=== PATIENT | female | born 1930 | race Caucasian/White ===

== ENCOUNTER → 2016-05-14 | Outpatient (CLI) | payer OTHER ==
[~2016-05-14] VITALS: Ht 162.6 cm; Wt 70.8 kg
[~2016-05-14] MED LIST: ADULT LOW DOSE81 MG PO; AMBIEN 10 MG TA10 MG PO; ASPIRIN PO; ATENOLOL 50 MG50 M1 PO; CALCIUM 600 WI1 EAC5 PO; CELEBREX 200 M200 MG PO; CELEXA 20 MG TA20 MG PO; CYMBALTA20 MG PO; ENALAPRIL MALEA20 MG PO; FISH OIL 1,001000 M1 PO; GLUCOSAMINE &1 EACH PO; LEVOTHYROXINE0.2 M1 PO; MULTIVITAMINS PO; NORCO 5-325 TA1 EACH PO; PRESERVISION A1 EAC1 PO; PRILOSEC 20 MG20 MG PO; SIMVASTATIN20 MG PO; TIROSINT75 MCG PO; TRAMADOL 50 MG50 MG PO; VERAPAMIL E.R240 M1 PO; WELLBUTRIN SR150 MG PO; XANAX 0.5 MG0.5 M1 PO; ZANTAC 150MG T150 M1 PO
--- NOTE | ~2016-05-14 | HPC ---
[facility] [place] [address] PAIN MANAGEMENT CONSULTATION Name: LEXI ODONNELL Zion Room #: REG [facility] Nichole.#: [id number] Admission: 05/14/16 Attend Phys: Marcial Kennedy DO Discharge: Date of : 31 Report #: [id number] THIS REPORT FOR: //name// CC: Lopez Kennedy The patient is a delightful 85-year-old female. She has been treated for lumbosacral spondylosis, SI joint dysfunction for quite some time. She has done well with occasional bilateral SI joint injections, last injection being on 11/25/2015. She gets greater than 60% relief for up to 3 months. She prior had had SI joint injections in May of 2015, November of 2013, and July of 2012. She returns to pain clinic today noting again last injection gave her near 90% relief actually for 3 months, though pain has began to recur in the low back. She denies any specific antecedent trauma and/or overuse. Notes the pain is in the low back, buttock, and SI areas, does not radiate below the mid thigh. Pain is exacerbated with leaning forward, bending and walking. Rates her pain at 8 on a 0-10 visual analog scale. PHYSICAL EXAMINATION: Shows an 85-year-old female, BMI is 26.8 kilograms per meter squared. Vital signs are generally stable. Rises from the chair using armrest. Gait is generally tandem. Diffuse tenderness over the SI joints. Positive Alyssa test bilaterally. ASSESSMENT: Symptomatic sacroiliac joint dysfunction, lumbosacral spondylosis. RECOMMENDATION: 1. Continue tramadol [id number], and suggest she use adjuvant acetaminophen 500 mg with this for pain. Typically after her SI joint injections, she does not require any analgesics for 2-3 months. I suggest when she goes back to tramadol, she used Tylenol concurrently, she does not require a prescription for the same. 2. Bilateral SI joint injections under fluoroscopy. 3. Continue current strengthening exercises, activity as able. 4. Follow up as needed. 5. Last visit, I had given the patient a prescription for physical therapy for core strengthening. She continues to do these activities and exercises. PROCEDURE: Bilateral SI joint injection under fluoroscopy. DESCRIPTION OF PROCEDURE: After written and informed consent was obtained including risk of infection, nerve trauma, increased pain and weakness, the patient wishes to proceed. The patient was taken to the fluoroscopy suite, placed in the prone position. The sacroiliac joint was visualized using the C-arm, turned in an oblique fashion to align the joint. The skin overlying the area was cleansed with ChloraPrep. Skin wheal with Xylocaine was raised. A 22 gauge spinal needle was inserted into the inferior aspect of the joint. A [address] [address] PAIN MANAGEMENT CONSULTATION Name: LEXI ODONNELL Room #: REG [facility] Jessi#: [id number] Admission: 05/14/16 Attend Phys: Marcial Kennedy DO Discharge: Date of : 31 Report #: [id number] volume extension tubing was then attached to the needle after the stylet was removed. Negative aspiration was accomplished. A 1 mL of Omnipaque was injected which showed spread within the SI joint. 40 mg triamcinolone plus 2 mL of 0.5% preservative-free bupivacaine was injected into the joint. Needle was removed. Attention was then turned to the contralateral joint which was treated in an identical fashion. After both needles were removed the prep was washed off. Two Band-Aids were applied over the puncture sites. The patient was allowed to ambulate to the recovery room, monitored for an appropriate period of time, discharged in good and stable condition. <ELECTRONICALLY SIGNED> By: Marcial Kennedy DO 05/15/16 0704 1227 1652 Marcial Kennedy DO /nt
[2016-05-14 09:57] VITALS: BP 156/82
== END ==
LOC: PAIN 06:43
DX: M47.817 Spondylosis without myelopathy or radiculopathy, lumbosacral region (principal); I10 Essential (primary) hypertension

== ENCOUNTER 2016-08-21 19:50 | Observation (INO) | payer OTHER ==
[~2016-08-21] VITALS: Ht 165.1 cm; Wt 67.6 kg
--- NOTE | ~2016-08-21 | EKG ---
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 : 1930 Requested By: Eamon Roland Order Number: [id number] MD: Mario Bunn Measurements Intervals [place] Rate: 62 P: 24 VA: 170 QRS: -31 QRSD: 111 T: 35 QT: 475 QTc: 483 Interpretive Statements Sinus rhythm Left ventricular hypertrophy Anterior Q waves, possibly due to LVH Nonspecific T abnormalities, lateral leads Compared to ECG 08/30/2011 10:44:46 Left ventricular hypertrophy now present Electronically Signed On 08-22-2016 2:12:12 CDT by Mario Bunn [email or web address] <ELECTRONICALLY SIGNED> By: Mario Bunn MD 08/22/16 0212 16 16 Mario Bunn MD /[facility]
[2016-08-21 19:51] VITALS: BP 209/91
[2016-08-21 20:30] LABS: ABSOLUTE NEUTROPHILS 6.7 thou/uL (1.4-8.2); BASOPHILS 0.4 % (0.0-2.0); EOSINOPHILS 0.3 % (0.0-3.0); HEMATOCRIT 42.5 % (37.0-47.0); LYMPHOCYTES 11.2 % (24.0-44.0); MCH 36.5 pg (26.0-34.0); MCHC 35.3 g/dL (28.0-37.0); MCV 103.5 fL (80.0-100.0); MONOCYTES 3.9 % (1.0-8.0); PLATELET COUNT 243 thou/uL (150-400); POLYS 84.2 % (36.0-66.0); RDW 12.3 % (10.5-14.5)
[2016-08-21 20:32] LABS: MANUAL DIFF NO
[2016-08-21 20:40] LABS: CALCIUM 9.1 mg/dL (8.5-10.1); CREATININE 0.7 mg/dL (0.6-1.0); POTASSIUM 3.6 mmol/L (3.5-5.1)
[2016-08-21 20:44] LABS: ALBUMIN 3.5 g/dL (3.4-5.0); TOTAL BILIRUBIN 1.1 mg/dL (<0.1-1.0); TOTAL PROTEIN 7.3 g/dL (6.4-8.2)
[2016-08-21 20:53] LABS: URINE BILIRUBIN NEGATIVE (Negative); URINE BLOOD 1+ (Negative); URINE COLOR YELLOW; URINE GLUCOSE-RANDOM* NEGATIVE (Negative); URINE KETONES 2+ (Negative); URINE LEUKOCYTES-REFLEX NEGATIVE (Negative); URINE PROTEIN (DIPSTICK) 2+ (Negative); URINE UROBILINOGEN 0.2 E.U./dl (0.2-1.0)
[2016-08-21 21:00] LABS: CASTS None Seen /LPF (None Seen); SQUAMOUS 0-3 Few /LPF (0-3); URINE RBC 3-10 Few /HPF (0-2); URINE WBC-REFLEX 0-5 Rare /HPF (0-5)
[2016-08-21 21:01] LABS: CRYSTALS None Seen /LPF (None Seen)
[2016-08-21 22:01] VITALS: BP 197/79
[2016-08-21 22:25] VITALS: BP 209/99
[2016-08-21 23:30] VITALS: BP 189/87
[2016-08-22 04:15] VITALS: BP 158/78
[2016-08-22 04:18] LABS: HEMATOCRIT 41.7 % (37.0-47.0); HEMOGLOBIN 14.8 gm/dL (12.0-15.0); MCHC 35.4 g/dL (28.0-37.0); MCV 101.5 fL (80.0-100.0); RBC 4.1 mil/uL (4.20-5.00); RDW 12.2 % (10.5-14.5); WBC 7.3 thou/uL (4.0-11.0)
[2016-08-22 04:30] LABS: CALCIUM 8.9 mg/dL (8.5-10.1); CREATININE 0.7 mg/dL (0.6-1.0); POTASSIUM 3.2 mmol/L (3.5-5.1)
[2016-08-22 09:02] VITALS: BP 170/66
[2016-08-22 09:50] LABS: MAGNESIUM 1.8 mg/dL (1.8-2.4)
[2016-08-22 16:55] VITALS: BP 188/80
[2016-08-22 20:00] VITALS: BP 166/61
[2016-08-23 01:06] LABS: GLYCOHEMOGLOBIN (HGB A1C) 4.7 % (4.8-5.6)
[2016-08-23 04:00] VITALS: BP 147/59
[2016-08-23 05:48] LABS: ABSOLUTE NEUTROPHILS 3.9 thou/uL (1.4-8.2); BASOPHILS 0.3 % (0.0-2.0); EOSINOPHILS 1.5 % (0.0-3.0); HEMOGLOBIN 13.3 gm/dL (12.0-15.0); LYMPHOCYTES 27.3 % (24.0-44.0); MCH 36.4 pg (26.0-34.0); MCHC 35.1 g/dL (28.0-37.0); MCV 103.9 fL (80.0-100.0); MONOCYTES 8.5 % (1.0-8.0); PLATELET COUNT 208 thou/uL (150-400); POLYS 62.4 % (36.0-66.0); RBC 3.66 mil/uL (4.20-5.00); RDW 12.3 % (10.5-14.5); WBC 6.3 thou/uL (4.0-11.0)
[2016-08-23 05:55] LABS: MANUAL DIFF NO
[2016-08-23 06:05] LABS: CALCIUM 8.6 mg/dL (8.5-10.1); CREATININE 0.8 mg/dL (0.6-1.0); POTASSIUM 4.2 mmol/L (3.5-5.1)
[2016-08-23 09:20] VITALS: BP 175/65
[2016-08-23] MEDS ORDERED: PROTONIX40 M2 PO (10:12)
[2016-08-23] MEDS ORDERED: ONDANSETRON HCL4 M2 PO (10:12)
[2016-08-23 14:03] VITALS: BP 175/74
== END 2016-08-23 14:24 | disposition home or self-care (01) ==
LOC: ER 19:50 → EROBS 21:34 → 3N 23:14
PROVIDERS: Emergency Medicine; Internal Medicine; Nurse Practitioner Family
DX: R10.13 Epigastric pain (principal); E87.1 Hypo-osmolality and hyponatremia; K21.9 Gastro-esophageal reflux disease without esophagitis; I10 Essential (primary) hypertension; E87.6 Hypokalemia; R07.9 Chest pain, unspecified; R53.1 Weakness; F41.9 Anxiety disorder, unspecified
CPT/HCPCS: 23020; 23021; 23024; 23029; 23031

== ENCOUNTER → 2016-12-31 | Outpatient (CLI) | payer OTHER ==
[~2016-12-31] VITALS: Ht 162.6 cm; Wt 70.1 kg
[~2016-12-31] MED LIST changes: +ONDANSETRON HCL4 M2 PO; +PROTONIX40 M1 PO; +PROTONIX40 M2 PO
--- NOTE | ~2016-12-31 | HPC ---
[facility] [address] PAIN MANAGEMENT CONSULTATION Name: LEXI ODONNELL Zion Room #: REG [facility] Jessi#: [id number] Admission: 12/31/16 Attend Phys: Marcial Kennedy DO Discharge: Date of : 31 Report #: [id number] THIS REPORT FOR: //name// CC: Lopez Kennedy DATE OF SERVICE: 12/31/2016 The patient is an 86-year-old female, long known to the pain clinic, typically treated for axial back pain, lumbosacral spondylosis, SI joint dysfunction. On 12/14/2016, I saw the patient in followup. She has had prior good relief with bilateral SI joint injections in 2012, 2013 and again in 2015. We sought authorization for bilateral SI injections today. Today, we did discuss at length spinal cord stimulator as possible therapeutic option. The patient's sister has had a spinal cord stimulator with excellent ongoing improvement. The patient notes that while the SI joint injections afford good relief, it is only transient, 2-3 months, and then pain recurs. We are concerned about exposing her to ongoing steroids with concern for osteoporosis in this 86-year-old female. ASSESSMENT #1: Symptomatic lumbosacral spondylosis, axial back pain, sacroiliac mediated pain. RECOMMENDATION: 1. I did give the patient DVD and printed information regarding spinal cord stimulator. We discussed therapeutic option at length for neuropathic pain component and lumbar radicular component. We will see her back in 2 weeks to evaluate efficacy of today's intervention and discuss moving forward with spinal cord stimulator if the patient so desirous. ASSESSMENT #2: Acute exacerbation of sacroiliac mediated pain. PROCEDURE: Bilateral sacroiliac joint injections under fluoroscopy. DESCRIPTION OF PROCEDURE: After written and informed consent was obtained including risk of infection, nerve trauma, increased pain and weakness, the patient wishes to proceed. The patient was taken to the fluoroscopy suite, placed in the prone position. The sacroiliac joint was visualized using the C-arm, turned in an oblique fashion to align the joint. The skin overlying the area was cleansed with ChloraPrep. Skin wheal with Xylocaine was raised. A 22 gauge spinal needle was inserted into the inferior aspect of the joint. A low volume extension tubing was then attached to the needle after the stylet was removed. Negative aspiration was accomplished. A 1 mL of Omnipaque was injected which showed spread within the SI joint. 40 mg triamcinolone plus [address] [address] PAIN MANAGEMENT CONSULTATION Name: LEXI ODONNELL Room #: REG [facility].#: [id number] Admission: 12/31/16 Attend Phys: Marcial Kennedy DO Discharge: Date of : 31 Report #: [id number] 0.5% preservative-free bupivacaine was injected into the joint. Needle was removed. Attention was then turned to the contralateral joint which was treated in an identical fashion. After both needles were removed the prep was washed off. Two Band-Aids were applied over the puncture sites. The patient was allowed to ambulate to the recovery room, monitored for an appropriate period of time, discharged in good and stable condition. Fluoroscopy time was 120 seconds. <ELECTRONICALLY SIGNED> By: Marcial Kennedy DO 01/01/17 0731 0856 1841 Marcial Kennedy DO /nt
[2016-12-31 08:28] VITALS: BP 158/83
== END | disposition home or self-care (01) ==
LOC: PAIN 06:20
DX: M53.3 Sacrococcygeal disorders, not elsewhere classified (principal); M47.817 Spondylosis without myelopathy or radiculopathy, lumbosacral region; M54.16 Radiculopathy, lumbar region

== ENCOUNTER 2017-02-24 17:45 | Inpatient (IN) | payer OTHER ==
[~2017-02-24] VITALS: Ht 162.6 cm; Wt 70.8 kg
--- NOTE | ~2017-02-24 | EKG ---
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: ANGELY : 1930 Requested By: Cesar Erazo Order Number: [id number] MD: Colin Zhou Measurements Intervals [place] Rate: 47 P: ME: QRS: -22 QRSD: 90 T: -36 QT: 474 QTc: 419 Interpretive Statements Atrial fibrillation with a slow ventricular response Septal infarct, old Nonspecific T wave abnormality Compared to ECG 08/21/2016 20:17:18 No significant change was found Electronically Signed On 02-25-2017 8:14:16 DRUPAL PHP DEVELOPER by Colin Zhou [email or web address] <ELECTRONICALLY SIGNED> By: Colin Zhou MD, [facility] 02/25/17 0814 180 180 Colin Zhou MD, [facility] /EPI
--- NOTE | ~2017-02-24 | EKG ---
[place] [address] [address] [place] [address] ELECTROCARDIOGRAM REPORT Name: NANCYLEXI Perez Room #: 446-P ADM IN M.R.#: [id number] Admission: 02/24/17 Attend Phys: Sonido Burns MD Discharge: Date of : 31 Report #: [id number] THIS REPORT FOR: //name// [facility] Test Date: 2017-02-26 Test Time: 09:40:38 Pat Name: LEXI ODONNELL Department: Room: 446 Gender: F Lay Out Former: GR : 1930 Requested By: Sonido Burns Order Number: [id number] MD: Bhaskar Chaudhary Measurements Intervals [place] Rate: 90 P: 79 AK: 182 QRS: -25 QRSD: 100 T: -59 QT: 386 QTc: 473 Interpretive Statements Sinus rhythm Ventricular premature complex Probable left ventricular hypertrophy Anterior Q waves, possibly due to LVH Nonspecific T abnormalities, lateral leads Compared to ECG 02/25/2017 13:00:22 Ventricular premature complex(es) now present Left ventricular hypertrophy now present Q waves now present T-wave abnormality still present Electronically Signed On 02-27-2017 8:22:18 DIGITAL COMPUTER SYSTEMS ANALYST by Bhaskar Chaudhary [email or web address] <ELECTRONICALLY SIGNED> By: Bhaskar Chaudhary MD 02/27/17821 9 9 Bhaskar Chaudhary MD /EPI
--- NOTE | ~2017-02-24 | EKG ---
[address] [address] ELECTROCARDIOGRAM REPORT Name: LEXI ODONNELL Zion Room #: 446-P ADM IN M.R.#: [id number] Admission: 02/24/17 Attend Phys: Sonido Burns MD Discharge: Date of : 31 Report #: [id number] THIS REPORT FOR: //name// [facility] ED Test Date: 2017-02-24 Test Time: 17:48:44 Pat Name: LEXI ODONNELL Department: Room: 44 Gender: F Account Liaison Hospice: ANGELY : 1930 Requested By: Order Number: [id number] MD: Colin Zhou Measurements Intervals [place] Rate: 48 P: MS: QRS: -14 QRSD: 93 T: -38 QT: 450 QTc: 402 Interpretive Statements Atrial fibrillation Probable anteroseptal infarct, old Nonspecific T abnormalities, inferior leads Compared to ECG 08/21/2016 20:17:18 Atrial fibrillation has replaced sinus rhythm Electronically Signed On 02-25-2017 8:13:20 MANAGER AGRICULTURE by Colin Zhou [email or web address] <ELECTRONICALLY SIGNED> By: Colin Zhou MD, [facility] 02/25/17 0813 1748 1748 Colin Zhou MD, [facility] /EPI
--- NOTE | ~2017-02-24 | EKG ---
[address] [address] ELECTROCARDIOGRAM REPORT Name: LEXI ODONNELL Room #: 446-P ADM IN M.R.#: [id number] Admission: 02/24/17 Attend Phys: Sonido Burns MD Discharge: Date of : 31 Report #: [id number] THIS REPORT FOR: //name// [facility] Test Date: 2017-02-27 Test Time: 15:04:32 Pat Name: LEXI ODONNELL Department: Room: 446 Gender: F Electronic Device Repairer: yang : 1930 Requested By: Bhaskar Chaudhary Order Number: [id number] MD: Bhaskar Chaudhary Measurements Intervals [place] Rate: 71 P: 47 SC: 155 QRS: -31 QRSD: 94 T: -41 QT: 402 QTc: 437 Interpretive Statements Sinus rhythm Abnormal R-wave progression, late transition Probable left ventricular hypertrophy Nonspecific T abnormalities, diffuse leads Compared to ECG 02/26/2017 09:40:38 Ventricular premature complex(es) no longer present Q waves no longer present T-wave abnormality still present Electronically Signed On 02-27-2017 17:33:28 LATHE PULLER by Bhaskar Chaudhary [email or web address] <ELECTRONICALLY SIGNED> By: Bhaskar Chaudhary MD 02/27/17 1733 1504 1504 Bhaskar Chaudhary MD /EPI
--- NOTE | ~2017-02-24 | EKG ---
[address] [address] ELECTROCARDIOGRAM REPORT Name: LEXI ODONNELL Zion Room #: 446- ADM IN M.R.#: [id number] Admission: 02/24/17 Attend Phys: Sonido Burns MD Discharge: Date of : 31 Report #: [id number] THIS REPORT FOR: //name// [facility] Test Date: 2017-02-25 Test Time: 13:00:22 Pat Name: LEXI ODONNELL Department: Room: 446 Gender: F Coater Smoking Pipe: Kalli WALLACE : 1930 Requested By: Bhaskar Chaudhary Order Number: [id number] MD: Colin Zhou Measurements Intervals [place] Rate: 65 P: 49 MS: 173 QRS: -17 QRSD: 98 T: -32 QT: 421 QTc: 438 Interpretive Statements Sinus rhythm Borderline left axis deviation Nonspecific T abnormalities, inferior leads Compared to ECG 02/24/2017 18:01:01 Atrial fibrillation no longer present Electronically Signed On 02-25-2017 17:07:08 SENIOR POLICY ASSOCIATE by Colin Zhou [email or web address] <ELECTRONICALLY SIGNED> By: Colin Zhou MD, [facility] 02/25/17 1707 1300 1300 Colin Zhou MD, [facility] /EPI
--- NOTE | ~2017-02-24 | 2DMMODE ---
[facility] [address] [place] [address] 2 D/M-MODE ECHOCARDIOGRAM Name: BLASLEXI R Room #: 446-P ADM IN M.R.#: [id number] Admission: 02/24/17 Attend Phys: Sonido Burns MD Discharge: Date of : 31 Date of Service: 02/25/17 1214 Report #: [id number] THIS REPORT FOR: //name// APPROVED REPORT Study performed: 02/25/2017 10:51:51 EXAM: Comprehensive 2D, Doppler, and color-flow Echocardiogram Patient Location: Echo lab Room #: 446 Status: routine BSA: 1.76 HR: 67 bpm BP: 152/73 mmHg Rhythm: NSR/PVCs Other Information Study Quality: Adequate Indications Bradycardia, elevated BNP, short of breath, HTN 2D Dimensions RVDd: 39.21 mm LVEF(%): 58.47 (>50%) IVSd: 9.84 (7-11mm) LVOT Diam: 20.97 (18-24mm) LVDd: 48.67 mm PWd: 10.24 (7-11mm) Ascending Ao: 33.94 (22-36mm) LVDs: 33.61 (25-40mm) Aortic Root: 33.39 mm Elliott's LVEF: 58.47 % Volumes Left Atrial Volume (Systole) Single Plane 4CH: 65.54 mL Single Plane 2CH: 91.34 mL LA ESV Index: 46.00 mL/m2 Aortic Valve AoV Peak Jose R.: 1.25 m/s AO Peak Gr.: 6.23 mmHg LVOT Max P.91 mmHg LVOT Max V: 0.85 m/s JEWELS Vmax: 2.36 cm2 Mitral Valve E/A Ratio: 1.6 MV Decel. Time: 174.65 ms [facility] [place] [address] 2 D/M-MODE ECHOCARDIOGRAM Name: LEXI ODONNELL Room #: 446-P [facility] IN .R.#: [id number] Admission: 02/24/17 Attend Phys: Sonido Burns MD Discharge: Date of : 31 Date of Service: 02/25/17 1214 Report #: [id number] MV E Max Jose R.: 1.14 m/s MV A Jose R.: 0.71 m/s MV PHT: 50.65 ms IVRT: 83.04 ms Pulmonary Valve PV Peak Jose R.: 0.62 m/s PV Peak Gr.: 1.51 mmHg Pulmonary Vein P Vein S: 0.45 m/s P Vein A: 0.28 m/s P Vein D: 0.74 m/s P Vein A Dur.: 83.0 msec P Vein S/D Ratio: 0.61 Tricuspid Valve RAP Estimate: 5.00 mmHg Left Ventricle The left ventricle is normal size. Regional wall motion is not well visualized but grossly normal. There is normal left ventricular wall thickness. Left ventricular systolic function is normal. LVEF is 55%. Grade II diastolic dysfunction Right Ventricle The right ventricle is normal size. The right ventricular systolic function is normal. Atria Left atrium is dilated. Right atrium is dilated. Aortic Valve The aortic valve is trileaflet, mildly sclerotic Trace aortic regurgitation. There is no aortic valvular stenosis. Mitral Valve The mitral valve is normal in structure. Mild mitral regurgitation. Tricuspid Valve The tricuspid valve is normal in structure. Trace tricuspid regurgitation. Unable to assess PA pressure. Pulmonic Valve The pulmonary valve is normal in structure. Mild pulmonic regurgitation. [place] [id number] 2 D/M-MODE ECHOCARDIOGRAM Name: LEXI ODONNELL Zion Room #: 446-P [facility] IN .R.#: [id number] Admission: 02/24/17 Attend Phys: Sonido uBrns MD Discharge: Date of : 31 Date of Service: 02/25/17 1214 Report #: [id number] The aortic root is normal in size. The ascending aorta is normal in size. IVC is normal in size and collapses >50% with inspiration. Pericardium There is no pericardial effusion. Small right pleural effusion noted. <Conclusion> Left ventricular systolic function is normal. Regional wall motion is not well visualized but grossly normal. LVEF is 55%. Grade II diastolic dysfunction Both atria are moderately dilated. The aortic valve is trileaflet, mildly sclerotic. Trace aortic regurgitation, no stenosis. The mitral valve is normal in structure. Mild mitral regurgitation. Pulmonary artery pressure could not be reliably ascertained There is no pericardial effusion. <ELECTRONICALLY SIGNED> By: Colin Zhou MD, FACC 02/25/17 1214 13 13 Colin Zhou MD, FACC /INF
[~2017-02-24 17:45] MED LIST changes: -LEVOTHYROXINE0.2 M1 PO; +SYNTHROID75 MCG PO
[2017-02-24 17:46] VITALS: BP 101/47
[2017-02-24] MEDS ORDERED: XANAX 0.5 MG0.5 MG PO (17:55)
[2017-02-24] MEDS ORDERED: WELLBUTRIN SR150 MG PO (17:56)
[2017-02-24] MEDS ORDERED: BENADRYL25 MG PO (17:56)
[2017-02-24 18:23] LABS: HEMATOCRIT 40.7 % (37.0-47.0); HEMOGLOBIN 13.6 gm/dL (12.0-15.0); MCHC 33.5 g/dL (28.0-37.0); MCV 104.6 fL (80.0-100.0); RBC 3.89 mil/uL (4.20-5.00); RDW 14.3 % (10.5-14.5); WBC 6.4 thou/uL (4.0-11.0)
[2017-02-24 18:38] LABS: ANION GAP 4 mmol/L (7-16); BUN 25 mg/dL (7-18); CALCIUM 8.8 mg/dL (8.5-10.1); CHLORIDE 105 mmol/L (98-107); CO2 31 mmol/L (21-32); GLUCOSE 102 mg/dL (74-106); POTASSIUM 4.5 mmol/L (3.5-5.1); SODIUM 140 mmol/L (136-145)
[2017-02-24 18:46] LABS: MAGNESIUM 2.7 mg/dL (1.8-2.4); TROPONIN-I < 0.04 ng/mL (<0.06)
[2017-02-24 21:50] VITALS: BP 110/74
[2017-02-24 23:38] VITALS: BP 127/58
[2017-02-25 05:20] VITALS: BP 152/73
[2017-02-25 06:57] LABS: HEMATOCRIT 38.2 % (37.0-47.0); HEMOGLOBIN 13.1 gm/dL (12.0-15.0); MCH 34.9 pg (26.0-34.0); MCHC 34.3 g/dL (28.0-37.0); MCV 101.9 fL (80.0-100.0); RBC 3.75 mil/uL (4.20-5.00); RDW 14.2 % (10.5-14.5); WBC 5.8 thou/uL (4.0-11.0)
[2017-02-25 07:06] LABS: CALCIUM 8.6 mg/dL (8.5-10.1); CREATININE 0.8 mg/dL (0.6-1.0); POTASSIUM 4.2 mmol/L (3.5-5.1)
[2017-02-25 08:44] VITALS: BP 171/74
[2017-02-25 16:38] VITALS: BP 157/62
[2017-02-25 17:22] LABS: ALBUMIN 3.1 g/dL (3.4-5.0); CALCIUM 8.6 mg/dL (8.5-10.1); CREATININE 0.9 mg/dL (0.6-1.0); POTASSIUM 4.1 mmol/L (3.5-5.1); TOTAL BILIRUBIN 0.4 mg/dL (<0.1-1.0); TOTAL PROTEIN 6.2 g/dL (6.4-8.2)
[2017-02-25 17:23] LABS: % SATURATION 18 % (20-39); IRON 46 ug/dL (50-170); TIBC 251 ug/dL (250-450)
[2017-02-25 17:48] LABS: FERRITIN 65 ng/mL (8-252)
[2017-02-25 22:03] VITALS: BP 180/82
[2017-02-26] VITALS (7 sets, daily range): BP systolic 141–193; BP diastolic 67–92
[2017-02-27 03:06] VITALS: BP 152/69
[2017-02-27 08:00] VITALS: BP 156/75
[2017-02-27] MEDS ORDERED: METOPROLOL SUCC25 M1 PO (09:13)
[2017-02-27] MEDS ORDERED: COZAAR100 MG PO (09:14)
[2017-02-27 14:56] LABS: CALCIUM 8.8 mg/dL (8.5-10.1); POTASSIUM 4.2 mmol/L (3.5-5.1)
[2017-02-27 15:01] VITALS: BP 157/71
[2017-02-27 17:17] VITALS: BP 157/71
[2017-05-17] MEDS ORDERED: ASPIRIN325 PO (14:55)
[2017-06-01] MEDS ORDERED: KLOR-CON 1010 MEQ PO (09:42)
[2017-06-01] MEDS ORDERED: COZAAR100 MG PO (09:42)
[2017-06-01] MEDS ORDERED: PREDNISONE 10 M10 MG PO (09:42)
[2017-06-01] MEDS ORDERED: LASIX 20 MG TAB20 MG PO (09:42)
[2017-06-01] MEDS ORDERED: ATENOLOL 50MG T50 MG PO (09:42)
[2017-06-01] MEDS ORDERED: CARDIZEM CD240 MG PO (09:42)
[2017-06-01] MEDS ORDERED: LEVAQUIN 750 M750 MG PO (09:58)
[2017-06-21] MEDS ORDERED: ATENOLOL 50MG T50 M1 PO (09:04)
[2017-06-21] MEDS ORDERED: DILTIAZEM 24HR240 M2 PO (09:05)
[2017-06-21] MEDS ORDERED: COZAAR100 MG PO (09:06)
[2017-06-21] MEDS ORDERED: KLOR-CON 1010 MEQ PO (09:06)
[2017-06-21] MEDS ORDERED: LASIX 20 MG TAB20 MG PO (09:06)
[2017-10-05] MEDS ORDERED: LASIX 40 MG TAB40 M2 PO (19:14)
[2017-10-06] MEDS ORDERED: CELEBREX 200 M200 M1 PO (08:16)
[2017-12-15] MEDS ORDERED: NAPROSYN500 MG PO (13:23)
== END 2017-02-27 16:50 | disposition home or self-care (01) | DRG 309 ==
LOC: ER 17:45 → EROBS 19:12 → 4S 19:12 → 4W 21:50 → 4S 23:00
PROVIDERS: Emergency Medicine; Internal Medicine Cardiovascular Disease; Nurse Practitioner Family; Registered Nurse
DX: I49.5 Sick sinus syndrome (principal); E44.1 Mild protein-calorie malnutrition; M41.9 Scoliosis, unspecified; F41.9 Anxiety disorder, unspecified; Z66 Do not resuscitate; K21.9 Gastro-esophageal reflux disease without esophagitis; E89.0 Postprocedural hypothyroidism; F41.0 Panic disorder [episodic paroxysmal anxiety]; G47.00 Insomnia, unspecified; J34.89 Other specified disorders of nose and nasal sinuses; I10 Essential (primary) hypertension; Z90.49 Acquired absence of other specified parts of digestive tract; Z79.899 Other long term (current) drug therapy; Z88.1 Allergy status to other antibiotic agents; Z88.8 Allergy status to other drugs, medicaments and biological substances
CPT/HCPCS: 10100

== ENCOUNTER → 2017-03-18 | Outpatient (CLI) | payer OTHER ==
[~2017-03-18] MED LIST changes: +AMBIEN 5 MG TABL5 M1 PO; +ASPIRIN325 PO; +ATENOLOL 100MG100 MG PO; +ATENOLOL 50MG T50 M1 PO; +ATENOLOL 50MG T50 MG PO; +BENADRYL25 MG PO; +CARDIZEM CD240 MG PO; +CELEBREX 200 M200 M1 PO; +COZAAR100 MG PO; +DILTIAZEM 24HR240 M2 PO; +ELIQUIS5 MG PO; +KLOR-CON 1010 MEQ PO; +LASIX 20 MG TAB20 MG PO; +LASIX 40 MG TAB40 M2 PO; +LEVAQUIN 750 M750 MG PO; +METOPROLOL SUCC25 M1 PO; +NAPROSYN500 MG PO; +PREDNISONE 10 M10 MG PO; +TOPROL XL25 MG PO; +VITAMIN D2000 UNIT PO; +XANAX 0.5 MG0.5 MG PO
== END ==
LOC: SEN 03-09 10:34
DX: G47.00 Insomnia, unspecified (principal); J34.89 Other specified disorders of nose and nasal sinuses; R53.1 Weakness

== ENCOUNTER → 2017-05-17 | Outpatient (CLI) | payer OTHER ==
[~2017-05-17] VITALS: Ht 162.6 cm; Wt 66.7 kg
--- NOTE | ~2017-05-17 | HPC ---
[facility] [place] [address] PAIN MANAGEMENT CONSULTATION Name: LEXI ODONNELL Room #: REG [facility] Nichole.#: [id number] Admission: 05/17/17 Attend Phys: Marcial Kennedy DO Discharge: Date of : 31 Report #: [id number] THIS REPORT FOR: //name// CC: Lopez Kennedy DATE OF SERVICE: 05/17/2017 The patient is a pleasant 86-year-old female, seen 4 months ago in mid December for SI mediated pain. She had prior had bilateral SI joint injections on 12/31/2016. When she was seen in followup on 01/18/2017, she was actually doing reasonably well. She was somewhat lost to follow up. She does note that following last injection she had good incremental improvement of baseline pain. Last visit they were, however, concerned that their mother was becoming a little more confused. I had done a short mini cognitive exam. She was unable to remember any of the words at 90 seconds. When I asked her to draw the face of a clock, she was able to do this appropriately. Dr. Marcus thought she did not warrant starting any cognitive agents (Namenda, Aricept, etc.). She returns to pain clinic today in the company of 2 daughters who are supportive. Notes that she has been using a walker for balance nearly 100% of the time when she is out. She has had no falls since we last saw her. She was hospitalized early February with edema and hypertension. Apparently, her atenolol and verapamil had been discontinued, she was started on losartan and metoprolol in the hospital, though the latter (metoprolol) has been discontinued. She has been prescribed a newer generation beta darcie, but has not been on this for about a month. She is a little bit hypertensive today. She admits that she is not exercising much, states her pain is primarily in the low back. Physical examination notes tenderness in the SI area. BMI is 25.2 kilograms per meter squared. Blood pressure is remarkably elevated, 209/109, pulse 64, respirations 16. Subjective pain score is 1 at rest, though standing and walking pain becomes quite problematic. She has not fallen in the last 3 months. She is very tender over the SI area. She rises from the chair with significant assistance. Grossly positive Alyssa test bilaterally. She has a modestly antalgic gait. ASSESSMENT: Symptomatic sacroiliac joint pain, symptomatic lumbosacral spondylosis without myelopathy, axial back pain. RECOMMENDATIONS: We will seek authorization for bilateral SI joint injection under fluoroscopy. She had greater than 60% relief for several months following last injection. Pain has become problematic again, interfering with function. [address] [address] PAIN MANAGEMENT CONSULTATION Name: LEXI ODONNELL Room #: REG [facility] Bowen#: [id number] Admission: 05/17/17 Attend Phys: Marcial Kennedy DO Discharge: Date of : 31 Report #: [id number] Historically, it looks like we have done SI injections once or twice a year over the past couple of years, all improving the patient's functional status. Discharged in good stable condition. We will seek authorization for bilateral SI joint injection under fluoroscopy at next visit. <ELECTRONICALLY SIGNED> By: Marcial Kennedy DO 05/21/17 0944 1552 1823 Marcial Kennedy DO /nt
[2017-05-17 15:01] VITALS: BP 209/109
== END ==
LOC: PAIN 07:14
DX: M47.16 Other spondylosis with myelopathy, lumbar region (principal); M53.3 Sacrococcygeal disorders, not elsewhere classified

== ENCOUNTER → 2017-06-21 | Outpatient (CLI) | payer OTHER ==
[~2017-06-21] VITALS: Ht 162.6 cm; Wt 64.7 kg
[~2017-06-21] MED LIST changes: -AMBIEN 5 MG TABL5 M1 PO; -ATENOLOL 100MG100 MG PO; -CELEBREX 200 M200 M1 PO; -ELIQUIS5 MG PO; -LASIX 40 MG TAB40 M2 PO; -NAPROSYN500 MG PO; -TOPROL XL25 MG PO; -VITAMIN D2000 UNIT PO
--- NOTE | ~2017-06-21 | HPC ---
[facility] [place] [address] PAIN MANAGEMENT CONSULTATION Name: LEXI ODONNELL [facility] #: [id number] Admission: 06/21/17 Attend Phys: Marcial Kennedy DO Discharge: Date of : 31 Report #: [id number] THIS REPORT FOR: //name// CC: Colin Kennedy DATE OF SERVICE: 06/21/2017 HISTORY OF PRESENT ILLNESS: The patient is a delightful 86-year-old female seen on multiple occasions for SI mediated pain. She was last seen in the pain clinic back in April (05/17/2017). Had progressed to perform bilateral SI joint injections. She has recently moved to an assisted living facility. We had talked at length about core stabilization exercise. She does use a walker or cane near 100% of the time. In the interval since we last saw her, she has been hospitalized, 05/28 through the . She was diagnosed with new onset atrial fibrillation with rapid ventricular response. She was treated medically. She returns to the pain clinic noting she does feel much better from a cardiopulmonary standpoint. She appears bright, alert and oriented. Does have ongoing axial back pain, bilateral SI area. Pain is exacerbated with standing, walking and bending. PHYSICAL EXAMINATION: Remains unchanged, vital signs stable as noted in the EMR. Rises from the chair using armrest, does have a bit of an ataxia. Gait antalgic as well. Tenderness over the SI joints. Positive ANIL test and Gaenslen's test bilaterally. She also has a little pain with ischial tuberosity. Skin breakdown is not noted. She does note she had spent a good deal of time in the hospital largely recumbent or sitting. ASSESSMENT: Bilateral sacroiliac joint pain, lumbosacral spondylosis without myelopathy in a patient with multiple comorbidities including congestive heart failure, atrial fibrillation, rapid ventricular response and likely component of osteoporosis. RECOMMENDATION: I had a long discussion with the patient today. I talked about moving forward with a core exercises. They do have a gym and some trainers at her home facility. We will encourage her to start doing exercise 3-4 times a week. I did specifically write physical therapy request for core stabilization and balance exercises. Today, we will repeat bilateral SI joint injections under fluoroscopy. Follow up simply on an as-needed basis. PROCEDURE NOTE: Bilateral SI joint injection under fluoroscopy. [address] [address] PAIN MANAGEMENT CONSULTATION Name: LEXI ODONNELL Zion Room #: REG CLI Virginie#: [id number] Admission: 06/21/17 Attend Phys: Marcial Kennedy DO Discharge: Date of : 31 Report #: [id number] INDICATION: Symptomatic sacroiliac mediated pain, lumbosacral spondylosis without myelopathy. PROCEDURE NOTE: After written and informed consent was obtained including risk of infection, nerve trauma, increased pain and weakness, the patient wishes to proceed. The patient was taken to the fluoroscopy suite, placed in the prone position. The sacroiliac joint was visualized using the C-arm, turned in an oblique fashion to align the joint. The skin overlying the area was cleansed with ChloraPrep. Skin wheal with Xylocaine was raised. A 22 gauge spinal needle was inserted into the inferior aspect of the joint. A low volume extension tubing was then attached to the needle after the stylet was removed. Negative aspiration was accomplished. A 1 mL of Omnipaque was injected which showed spread within the SI joint. 40 mg triamcinolone plus 2 mL of 0.5% preservative-free bupivacaine was injected into the joint. Needle was removed. Attention was then turned to the contralateral joint which was treated in an identical fashion. After both needles were removed the prep was washed off. Two Band-Aids were applied over the puncture sites. The patient was allowed to ambulate to the recovery room, monitored for an appropriate period of time, discharged in good and stable condition. <ELECTRONICALLY SIGNED> By: Marcial Kennedy DO 06/23/17 0803 [id number] 0302 Marcial Kennedy DO /nt
[2017-06-21 08:57] VITALS: BP 150/97
== END | disposition home or self-care (01) ==
LOC: PAIN 08:34
DX: M53.3 Sacrococcygeal disorders, not elsewhere classified (principal); G89.29 Other chronic pain; M47.817 Spondylosis without myelopathy or radiculopathy, lumbosacral region; I50.9 Heart failure, unspecified; I48.91 Unspecified atrial fibrillation; M81.0 Age-related osteoporosis without current pathological fracture; Z79.82 Long term (current) use of aspirin; Z79.899 Other long term (current) drug therapy; Z88.8 Allergy status to other drugs, medicaments and biological substances

== ENCOUNTER 2017-07-02 10:18 | Emergency (ER) | payer OTHER ==
[~2017-07-02] VITALS: Ht 165.1 cm; Wt 68.0 kg
[2017-07-02] MEDS ORDERED: ELIQUIS5 MG PO (10:57)
[2017-07-02 11:01] LABS: ABSOLUTE NEUTROPHILS 10.1 thou/uL (1.4-8.2); BASOPHILS 0.3 % (0.0-2.0); EOSINOPHILS 0.6 % (0.0-3.0); HEMATOCRIT 41.7 % (37.0-47.0); HEMOGLOBIN 14.1 gm/dL (12.0-15.0); LYMPHOCYTES 9.6 % (24.0-44.0); MCH 35.8 pg (26.0-34.0); MCHC 33.7 g/dL (28.0-37.0); MCV 106.1 fL (80.0-100.0); MONOCYTES 4.9 % (1.0-8.0); POLYS 84.6 % (36.0-66.0); RBC 3.93 mil/uL (4.20-5.00); RDW 14.5 % (10.5-14.5); WBC 11.9 thou/uL (4.0-11.0)
[2017-07-02 11:14] LABS: CALCIUM 9.4 mg/dL (8.5-10.1); CREATININE 0.8 mg/dL (0.6-1.0); POTASSIUM 4.3 mmol/L (3.5-5.1)
[2017-07-02 11:33] LABS: URINE BILIRUBIN NEGATIVE (Negative); URINE BLOOD NEGATIVE (Negative); URINE CLARITY CLEAR; URINE COLOR YELLOW; URINE GLUCOSE-RANDOM* NEGATIVE (Negative); URINE KETONES NEGATIVE (Negative); URINE LEUKOCYTES-REFLEX NEGATIVE (Negative); URINE NITRITE-REFLEX NEGATIVE (Negative); URINE PROTEIN (DIPSTICK) NEGATIVE (Negative); URINE SPECIFIC GRAVITY 1.015 (1.005-1.035); URINE UROBILINOGEN 0.2 E.U./dl (0.2-1.0)
[2017-07-02 11:51] LABS: PLATELET COUNT 263 thou/uL (150-400)
[2017-07-02 13:00] VITALS: BP 169/100
== END 2017-07-02 13:08 ==
LOC: ER 10:18
PROVIDERS: Emergency Medicine
DX: R53.1 Weakness (principal); I10 Essential (primary) hypertension; F41.9 Anxiety disorder, unspecified; K21.9 Gastro-esophageal reflux disease without esophagitis; Z90.89 Acquired absence of other organs; Z88.8 Allergy status to other drugs, medicaments and biological substances; Z88.5 Allergy status to narcotic agent; W19.XXXA Unspecified fall, initial encounter; Y93.89 Activity, other specified; Y92.89 Other specified places as the place of occurrence of the external cause; Y99.8 Other external cause status

== ENCOUNTER → 2017-08-19 | Outpatient (CLI) | payer OTHER ==
[~2017-08-19] VITALS: Ht 162.6 cm; Wt 63.5 kg
[~2017-08-19] MED LIST changes: +ELIQUIS5 MG PO
--- NOTE | ~2017-08-19 | HPC ---
[facility] [place] [address] PAIN MANAGEMENT CONSULTATION Name: LEXI ODONNELL Room #: [facility] [id number] Admission: 08/19/17 Attend Phys: Marcial Kennedy DO Discharge: Date of : 31 Report #: [id number] THIS REPORT FOR: //name// CC: Lopez Kennedy HISTORY OF PRESENT ILLNESS: The patient is a very pleasant 86-year-old female, typically treated for SI mediated pain. She was last seen in pain clinic on 06/21/2017. We did bilateral SI joint injections with good improvement in pain (70% per patient) for > 6 weeks. She has unfortunately had increasing debility. She had fallen twice in June, was seen in the ER. She was returned to a assisted facility. She is seen today in the company of her daughter, who is supportive. The patient tells me pain is recurring. Actually it is low back, left a little worse than the right. It seems to be similar to prior issues, low back radiating to the buttock and a little bit down the leg, but not below the knee. PHYSICAL EXAMINATION: GENERAL: Shows a pleasant 86-year-old female, BMI is 24 kilograms per meter squared. VITAL SIGNS: Stable as noted in the EMR. NEUROLOGIC: Rises from the chair with difficulty. She uses a walker to ambulate. Balance is poor. Gait is antalgic. Very tender over the bilateral SI joints. Positive Alyssa test bilaterally, left more so than right. Positive Gaenslen's test. Pelvic distraction exacerbates the pain bilaterally. Lower extremity strength is diminished, but symmetric. Straight leg raise negative. DIAGNOSTIC STUDIES: Included a quite dated MRI from 12/2009. She has diffuse lumbar degenerative changes at the lumbar spine with some scoliosis. ASSESSMENT: Symptomatic sacroiliac-mediated pain and lumbosacral spondylosis without myelopathy. RECOMMENDATIONS: We will seek authorization for bilateral SI joint injection under fluoroscopy next week. Strongly encouraged continued range of motion exercise and ambulation as able. <ELECTRONICALLY SIGNED> By: Marcial Knenedy DO 08/20/17 0654 1132 2343 Marcial Kennedy DO /nt
[2017-08-19 09:58] VITALS: BP 150/72
== END ==
LOC: PAIN 07:21
DX: M47.817 Spondylosis without myelopathy or radiculopathy, lumbosacral region (principal); M53.3 Sacrococcygeal disorders, not elsewhere classified

== ENCOUNTER → 2017-09-03 | Outpatient (CLI) | payer OTHER ==
[~2017-09-03] VITALS: Ht 162.6 cm; Wt 60.3 kg
[~2017-09-03] MED LIST changes: +AMBIEN 5 MG TABL5 M1 PO; +TOPROL XL25 MG PO; +VITAMIN D2000 UNIT PO
--- NOTE | ~2017-09-03 | HPC ---
[facility] [place] [address] PAIN MANAGEMENT CONSULTATION Name: BLASLEXI Zion Room #: REG [facility] Nichole.#: [id number] Admission: 09/03/17 Attend Phys: Marcial Kennedy DO Discharge: Date of : 31 Report #: [id number] THIS REPORT FOR: //name// CC: Lopez Kennedy DATE OF SERVICE: 09/03/2017 HISTORY OF PRESENT ILLNESS: The patient is a very pleasant 86-year-old female, prior seen on 08/19/2017, diagnosed with sacral spondylosis without myelopathy (M47.818), SI mediated pain. We sought authorization for bilateral SI joint injection under fluoroscopy. She presents to pain clinic today for this injection. She currently notes ongoing pain is a 6 on a VAS, across the low back, exacerbated with activity. No radicular symptoms are noted. The patient wished to proceed with the procedure. ASSESSMENT: Symptomatic sacral spondylosis without myelopathy, sacroiliac mediated pain (M47.818). PROCEDURE: Bilateral SI joint injection under fluoroscopy. PROCEDURE NOTE: After written and informed consent was obtained including risk of infection, nerve trauma, increased pain and weakness, the patient wishes to proceed. The patient was taken to the fluoroscopy suite, placed in the prone position. The sacroiliac joint was visualized using the C-arm, turned in an oblique fashion to align the joint. The skin overlying the area was cleansed with ChloraPrep. Skin wheal with Xylocaine was raised. A 22 gauge spinal needle was inserted into the inferior aspect of the joint. A low volume extension tubing was then attached to the needle after the stylet was removed. Negative aspiration was accomplished. A 1 mL of Omnipaque was injected which showed spread within the SI joint. 40 mg triamcinolone plus 2 mL of 0.5% preservative-free bupivacaine was injected into the joint. Needle was removed. Attention was then turned to the contralateral joint which was treated in an identical fashion. After both needles were removed the prep was washed off. Two Band-Aids were applied over the puncture sites. The patient was allowed to ambulate to the recovery room, monitored for an appropriate period of time, discharged in good and stable condition. <ELECTRONICALLY SIGNED> By: Marcial Kennedy DO 09/05/17 1135 1202 1755 Marcial Kennedy DO /nt
[2017-09-03 11:00] VITALS: BP 139/73
== END | disposition home or self-care (01) ==
LOC: PAIN 08:33
DX: M47.818 Spondylosis without myelopathy or radiculopathy, sacral and sacrococcygeal region (principal); M53.3 Sacrococcygeal disorders, not elsewhere classified; G89.29 Other chronic pain; I11.0 Hypertensive heart disease with heart failure; I50.9 Heart failure, unspecified; I48.91 Unspecified atrial fibrillation; Z79.899 Other long term (current) drug therapy; Z79.01 Long term (current) use of anticoagulants; Z98.890 Other specified postprocedural states

== ENCOUNTER 2017-09-29 14:39 | Inpatient (IN) | payer OTHER ==
[~2017-09-29] VITALS: Ht 162.6 cm; Wt 68.5 kg
--- NOTE | ~2017-09-29 | 2DMMODE ---
[facility] [address] [place] [address] 2 D/M-MODE ECHOCARDIOGRAM Name: NOLANELINALEXI Perez Room #: 207-P ADM IN M.R.#: [id number] Admission: 09/29/17 Attend Phys: Bhaskar Chaudhary Discharge: Date of : 31 Date of Service: 09/29/17 1713 Report #: [id number] THIS REPORT FOR: //name// APPROVED REPORT Study performed: 09/29/2017 15:18:44 EXAM: Comprehensive 2D, Doppler, and color-flow Echocardiogram Patient Location: Bedside Room #: 207 Status: routine BSA: 1.71 HR: 55 bpm BP: 128/70 mmHg Other Information Study Quality: Adequate Indications Congestive Heart Failure Bradycardia 2D Dimensions LVEF(%): 59.55 (>50%) IVSd: 9.87 (7-11mm) LVOT Diam: 20.49 (18-24mm) LVDd: 49.46 mm PWd: 9.88 (7-11mm) Ascending Ao: 30.67 (22-36mm) LVDs: 33.76 (25-40mm) Aortic Root: 30.32 mm IVC: 18.00 mm Elliott's LVEF: 59.55 % Tricuspid Valve TR Peak Jose R.: 2.58 m/s TR Peak Gr.: 26.62 mmHg PA Pressure: 32.00 mmHg Left Ventricle The left ventricle is normal size. There is normal left ventricular wall thickness. Left ventricular systolic function is mild-moderately decreased. Discordant distal septal and distal inferior wall motion LVEF is 40-45%. Right Ventricle The right ventricle is normal size. The right ventricular systolic function is normal. [facility] [address] [place] [address] 2 D/M-MODE ECHOCARDIOGRAM Name: LEXI ODONNELL Room #: 207-P ADM IN .R.#: [id number] Admission: 09/29/17 Attend Phys: Bhaskar Chaudhary Discharge: Date of : 31 Date of Service: 09/29/17 1713 Report #: [id number] Atria Left atrium is dilated. Right atrium is dilated. Aortic Valve The aortic valve is mildly sclerotic Mitral Valve The mitral valve is normal in structure. Mild mitral regurgitation. Tricuspid Valve The tricuspid valve is normal in structure. There is mild tricuspid regurgitation. Estimated PAP 32 mmHg. There is mild pulmonary hypertension. Pulmonic Valve The pulmonary valve is normal in structure. Great Vessels The aortic root is normal in size. IVC is normal in size and collapses >50% with inspiration. Pericardium There is no pericardial effusion. <Conclusion> Abbreviated echocardiogram. Limited study Left ventricular systolic function is mild-moderately decreased. Discordant distal septal and distal inferior wall motion abnormality LVEF is 40-45%. Both atria are dilated. The aortic valve is mildly sclerotic The mitral valve is normal in structure. Mild mitral regurgitation. There is mild tricuspid regurgitation. Estimated pulmonary artery pressure of 32 mmHg. There is no pericardial effusion. LV dysfunction is new compared to a study dated 05/2017 <ELECTRONICALLY SIGNED> By: Colin Zhou MD, [facility] 09/29/17 1713 12 12 Colin Zhou MD, FACC /INF
--- NOTE | ~2017-09-29 | EKG ---
[place] [address] [address] [facility] [place] 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: : 1930 Requested By: Bhaskar Chaudhary Order Number: [id number] MD: Colin Zhou Measurements Intervals [place] Rate: 86 P: IA: QRS: -40 QRSD: 98 T: 228 QT: 459 QTc: 549 Interpretive Statements Atrial fibrillation Left anterior fascicular block Probable anterior infarct, age indeterminate Abnormal T, probable ischemia, widespread Occasional premature ventricular aberrantly conducted supraventricular complexes Prolonged QT interval Compared to ECG 05/31/2017 08:50:28 premature ventricular complexes are now present Diffuse ST and T wave abnormality is present Electronically Signed On 10-03-2017 15:12:31 CDT by Colin Zhou [email or web address] <ELECTRONICALLY SIGNED> By: Colin Zhou MD, [facility] 10/03/17 1512 0954 0954 Colin Zhou MD, [facility] /EPI
--- NOTE | ~2017-09-29 | EKG ---
[place] [address] [facility] [place] [address] ELECTROCARDIOGRAM REPORT Name: LEXI ODONNELL Room #: 207-P [facility] IN ..#: [id number] Admission: 09/29/17 Attend Phys: Bhaskar Chaudhary MD Discharge: 10/02/17 Date of : 31 Report #: [id number] THIS REPORT FOR: //name// [facility] ED Test Date: 2017-10-05 Test Time: 16:37:58 Pat Name: LEXI ODONNELL Department: Room: Gender: F [employer] Architect: [facility] : 1930 Requested By: Jakob Merino Order Number: [id number] MD: Measurements Intervals [place] Rate: 63 P: CT: QRS: -35 QRSD: 97 T: 236 QT: 432 QTc: 443 Interpretive Statements Atrial fibrillation Left axis deviation Anteroseptal infarct, old Abnormal T, probable ischemia, widespread Compared to ECG 10/01/2017 09:54:09 Left-axis deviation now present Left anterior fascicular block no longer present Ventricular premature complex(es) no longer present Prolonged QT interval no longer present Myocardial infarct finding still present T-wave abnormality still present Possible ischemia still present [email or web address] By: 36 36 Epiphany EpiphanyMD /JESSICA
--- NOTE | ~2017-09-29 | D ---
[facility] [place] [address] DISCHARGE SUMMARY Name: LEXI ODONNELL Room #: 207-P [facility] IN M.R.#: [id number] Admission: 09/29/17 Attend Phys: Bhaskar Chaudhary MD Discharge: 10/02/17 Date of : 31 Report #: [id number] THIS REPORT FOR: //name// CC: Lopez Chaudhary DATE OF SERVICE: 10/02/2017 ADMITTING DIAGNOSIS: Abnormal electrocardiogram. DISCHARGE DIAGNOSES: 1. 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 2. Paroxysmal atrial fibrillation. 3. Hypertension. DISCHARGE MEDICATIONS: 1. Synthroid 75 mcg daily, Ultram 50 mg every 6 hours as needed, Xanax 0.5 q.8 hours p.r.n., Wellbutrin-SR 150 b.i.d., atenolol 50 mg p.o. 2 tablets daily, diltiazem 240 mg daily, losartan 100 mg daily, Ambien 10 mg daily, vitamin D3. 2. The patient is to stop apixaban. 3. Change furosemide 20 mg daily to 40 mg daily and potassium to 20 mEq daily. FOLLOWUP: Swathi Lopez nurse practitioner next week, Dr. Chaudhary in 2 weeks. DISCHARGE DIET: Salt restricted. BRIEF CLINICAL HISTORY: See history and physical in chart. HOSPITAL COURSE: The patient was admitted directly from office due to significant EKG changes. Perfusion scan demonstrated the presence of an apical inferior infarct which is nonviable and the patient was initiated on regimen. She tolerated well without any significant negative drug effects and was able to tolerate medications without issues. She is being discharged in improved and stable condition to follow up with the previously stated discharge instructions and medications. <ELECTRONICALLY SIGNED> By: Jeramy Silva MD 10/02/172008 1617 [id number] Jeramy Silva MD /nt
[~2017-09-29 14:39] MED LIST changes: -AMBIEN 5 MG TABL5 M1 PO; -TOPROL XL25 MG PO; -VITAMIN D2000 UNIT PO
[2017-09-29 16:01] LABS: HEMATOCRIT 41.5 % (37.0-47.0); MCH 34.8 pg (26.0-34.0); MCHC 33.7 g/dL (28.0-37.0); MCV 103.3 fL (80.0-100.0); RBC 4.02 mil/uL (4.20-5.00); RDW 14.1 % (10.5-14.5); WBC 6.8 thou/uL (4.0-11.0)
[2017-09-29 16:09] LABS: ANION GAP 7 mmol/L (7-16); BUN 22 mg/dL (7-18); CHLORIDE 103 mmol/L (98-107); CO2 28 mmol/L (21-32); GLUCOSE 102 mg/dL (74-106); POTASSIUM 3.7 mmol/L (3.5-5.1); SODIUM 138 mmol/L (136-145)
[2017-09-29 16:18] LABS: ALBUMIN 3.4 g/dL (3.4-5.0); SGOT 14 U/L (15-37); SGPT 27 U/L (30-65); TOTAL BILIRUBIN 0.5 mg/dL (<0.1-1.0); TOTAL PROTEIN 6.6 g/dL (6.4-8.2); TROPONIN-I <0.06 ng/mL (<0.06)
[2017-09-29 16:23] VITALS: BP 134/71
[2017-09-29 20:25] VITALS: BP 146/64
[2017-09-29] MEDS ORDERED: ASPIRIN325 PO (20:48)
[2017-09-29] MEDS ORDERED: AMBIEN 5 MG TABL5 M1 PO (20:50)
[2017-09-29] MEDS ORDERED: VITAMIN D2000 UNIT PO (20:57)
[2017-09-29] MEDS ORDERED: TOPROL XL25 MG PO (20:58)
[2017-09-30 00:45] VITALS: BP 137/82
[2017-09-30 03:47] VITALS: BP 148/79
[2017-09-30 07:16] VITALS: BP 153/89
[2017-09-30 11:22] VITALS: BP 145/93
[2017-09-30 15:02] VITALS: BP 145/92
[2017-09-30 20:03] VITALS: BP 132/85
[2017-10-01 04:03] VITALS: BP 132/65
[2017-10-01 05:09] LABS: CALCIUM 8.8 mg/dL (8.5-10.1); CREATININE 1.1 mg/dL (0.6-1.0); POTASSIUM 3.2 mmol/L (3.5-5.1)
[2017-10-01 08:08] VITALS: BP 144/90
[2017-10-01 11:56] VITALS: BP 121/75
[2017-10-01 15:23] VITALS: BP 123/79
[2017-10-01 19:50] VITALS: BP 124/63
[2017-10-02 03:21] VITALS: BP 138/65
[2017-10-02 05:18] LABS: CALCIUM 8.9 mg/dL (8.5-10.1); CREATININE 1.1 mg/dL (0.6-1.0); POTASSIUM 3.3 mmol/L (3.5-5.1)
[2017-10-02 07:37] VITALS: BP 141/82
[2017-10-02] MEDS ORDERED: ATENOLOL 100MG100 MG PO (09:33)
[2017-10-02 11:14] VITALS: BP 124/83
[2017-10-02 11:30] VITALS: BP 124/83
[2017-10-05] MEDS ORDERED: LASIX 40 MG TAB40 M2 PO (19:14)
[2017-10-06] MEDS ORDERED: CELEBREX 200 M200 M1 PO (08:16)
== END 2017-10-02 15:57 | disposition home or self-care (01) | DRG 293 ==
LOC: 2N 14:39
PROVIDERS: Internal Medicine Cardiovascular Disease; Nurse Practitioner Gerontology
DX: I11.0 Hypertensive heart disease with heart failure (principal); I25.110 Atherosclerotic heart disease of native coronary artery with unstable angina pectoris; I50.21 Acute systolic (congestive) heart failure; I25.2 Old myocardial infarction; E89.0 Postprocedural hypothyroidism; I25.5 Ischemic cardiomyopathy; I48.0 Paroxysmal atrial fibrillation; Z79.01 Long term (current) use of anticoagulants; Z88.8 Allergy status to other drugs, medicaments and biological substances; Z79.899 Other long term (current) drug therapy
CPT/HCPCS: 10797

== ENCOUNTER → 2017-12-15 | Outpatient (CLI) | payer OTHER ==
[~2017-12-15] VITALS: Ht 162.6 cm; Wt 67.3 kg
[~2017-12-15] MED LIST changes: +AMBIEN 5 MG TABL5 M1 PO; +ATENOLOL 100MG100 MG PO; +CELEBREX 200 M200 M1 PO; +LASIX 40 MG TAB40 M2 PO; +NAPROSYN500 MG PO; +TOPROL XL25 MG PO; +VITAMIN D2000 UNIT PO
--- NOTE | ~2017-12-15 | HPC ---
[facility] [place] [address] PAIN MANAGEMENT CONSULTATION Name: LEXI ODONNELL Zion Room #: REG CELINE Jessi#: [id number] Admission: 12/15/17 Attend Phys: Lopez Kennedy DO Discharge: Date of : 31 Report #: [id number] THIS REPORT FOR: //name// CC: Lopez Colby DATE OF SERVICE: 12/15/2017 CHIEF COMPLAINT: Low back pain. HISTORY OF PRESENT ILLNESS: As you know, the patient is an 87-year-old female followed by my partner, Dr. Marcial Kennedy for chronic low back pain issues. The patient has undergone bilateral SI joint injections under fluoroscopic guidance with improvement in symptoms. The patient does not like the shots, but does report that she received some benefit. She returns today in followup visit to discuss the possibility of undergoing the next in the series, but has voiced concerns about issues of falls of late. Apparently, the patient is waking up at night and is disoriented and confused and has sustained falls. She is also having increasing cognition and memory issues. The patient states that she has been known to take medication without knowing what it was for or how it works. Apparently, she has taken some extra Ambien a couple of nights without knowledge. The patient is accompanied by her daughter who is providing a good portion of the history today. She returns to discuss the possibility of undergoing the injections, but also to discuss her daughter's concerns of the Ambien and the aspirin use the patient has been partaking in. She denies any new injury or trauma to her back except for these recent falls, but states that there were no residual issues. ALLERGIES: BENAZEPRIL, AMLODIPINE, HYDROCHLOROTHIAZIDE, AMITRIPTYLINE. CURRENT MEDICATIONS: Furosemide 40 mg once a day, atenolol 100 mg once a day, cholecalciferol 2000 units per day, zolpidem 5 mg p.o. at bedtime, potassium chloride 10 mEq p.o. q. day, losartan 100 mg per day, diltiazem ER 240 mg per day, bupropion 150 mg twice a day, alprazolam 0.5 mg every 8 hours, tramadol 50 mg every 6 hours p.r.n. pain, levothyroxine 75 mcg per day. IMAGING: No new imaging available. 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 No rheumatoid arthritis. She is placing pain intensity of 2/10. She is a fall risk. She has had multiple falls in the past 3 months. She uses a roller walker for ambulation. She is on blood thinner in the form of Eliquis. She does have a history of hypertension. She is not officially on opioids at this time. She does not take any of her pain medication other than aspirin. She has a low to moderate risk of opioid addiction. [address] [address] PAIN MANAGEMENT CONSULTATION Name: LEXI ODONNELL Zion Room #: REG CELINE Bowen#: [id number] Admission: 12/15/17 Attend Phys: Lopez Kennedy DO Discharge: Date of : 31 Report #: [id number] assessment pain impact tool 35/70, moderate interference of daily activities. PHYSICAL EXAMINATION: VITAL SIGNS: Blood pressure 140/60, pulse 83, respiratory rate 14 and unlabored. The patient is 95% on room air. Height 5 feet 4 inches tall, weight 148.4 pounds, BMI calculated 25.5. GENERAL: Well-developed, well-nourished, well-hydrated 87-year-old female, appearing stated age, placing current pain score at no greater than 2/10. HEENT: Normocephalic, atraumatic. Pupils equal, round, reactive to light. Extraocular muscles are intact. NEUROLOGIC: Speech is normal for patient. The patient does have noted cognition issues that she has difficult time with recalling recent topics, also has some hearing issues. EXTREMITIES: Show no clubbing, no cyanosis, no edema. MUSCULOSKELETAL: The patient has palpatory tenderness over the paraspinal musculature of lower lumbar spine, no spinous process tenderness. Lumbar provocation testing including extension, rotation, lateral flexion as well as standing from a seated position exacerbates low back pain. She has palpatory tenderness over the bilateral SI joints as well. Deep palpation of the area causes intensification of symptoms. Gait is antalgic. Stance is forward flexed lumbar spine, loss of lordotic curvature. ASSESSMENT: 1. Chronic low back pain. 2. Bilateral sacroiliac joint pain. 3. Lumbar degradation. 4. Insomnia. 5. Chronic intractable pain. PLAN: 1. The patient has returned today in followup visit where we have discussed at length the possibility of undergoing next in the series of bilateral SI joint injections. The patient receives benefit with these injections, but "does not like to undergo them." The patient and I discussed the possibility of undergoing next in the series to build on success of previous intervention. We will begin the process of authorization. Authorization should take anywhere from 4-7 working days. We will have the patient return to undergo this procedure if she wishes next week. We will contact the patient once we have the authorization to discuss whether or not she wishes to move forward with the actual procedure. 2. The patient indicates that she is taking aspirin 2-3 times a day. Recommend discontinuation of aspirin due to the potential side effects. I would recommend the patient trial naproxen 500 mg dose. This has been shown to be effective in older individuals with decreased renal function. It is indicated as one of the safest anti-inflammatories to be used on older geriatric patients. We will start the patient on this medication, hope the patient see some improvement in [facility] [address] [place] [address] PAIN MANAGEMENT CONSULTATION Name: LEXI ODONNELL Zion Room #: REG [facility].#: [id number] Admission: 12/15/17 Attend Phys: Lopez Kennedy DO Discharge: Date of : 31 Report #: [id number] symptoms and this will reduce her reliance on the aspirin that she has been taking, which is concerning for bleeding issues and gastrointestinal issues. She was given a prescription for naproxen 500 mg dose 1 tab p.o. t.i.d. with meals. I have given the patient #90 tablets, 2 refills. She will watch for dyspepsia, worsening blood pressure, lower extremity edema. If she notes any side effects, discontinue immediately and call for further instructions. 3. The patient and I did discuss at great length today our concerns about the zolpidem on a nightly basis. She has typical age-related insomnia issues found in any individual of 87 years of age. She is expecting to sleep 7-8 hours a night, which is not physiologically necessary in individuals at 87 years of age. In fact, they typically only require somewhere between 3.5 and 4 hours of sleep. This would be something that should be addressed. I am concerned that the zolpidem itself is leading to cognition issues, certainly is placing her at a much higher risk for falls in the evening hours and confusion that the patient has been reporting. We will defer to the primary team for adjustments in the therapy, but have voiced our concerns about the use of Ambien in older individuals. The patient will follow up with Dr. Marcus in regards to this issue. 4. The patient was advised she can utilize the tramadol along with naproxen, but she is not to use aspirin along with the naproxen. We recommend the use of tramadol for breakthrough pain that is not controlled by the naproxen sodium prescribed today. We will discuss efficacy of the tramadol followup visit assuming she begins to take the medication. Family today indicates that she has been taking tramadol every day every morning, the patient is adamant that she is not. This is a part of the concern with the patient's mentation issues. I believe that she is becoming somewhat forgetful and that medication management needs to be more controlled. We have discussed this with the family today. They are going to make adjustments in her treatment options and her medication usage by trying to hire someone to help with medication treatments. We encouraged the patient and her family to seek out assistance or possibly utilizing the electric Internet based medication dispensers available for individuals that have difficulty with cognition and cannot either remember to take the medications or take too much of their medications. The patient was given information about this today. 5. We will see the patient back in followup visit once we have achieved authorization for the patient to undergo bilateral SI joint injections in hopes of continuing to provide pain relief. By: 1400 [id number] Lopez Kennedy DO /nt
[2017-12-15 12:43] VITALS: BP 140/60
== END ==
LOC: PAIN 07:05
DX: M54.5 Low back pain (principal); M53.3 Sacrococcygeal disorders, not elsewhere classified; G47.00 Insomnia, unspecified; G89.4 Chronic pain syndrome; M51.36 Other intervertebral disc degeneration, lumbar region; Z79.899 Other long term (current) drug therapy

== ENCOUNTER → 2018-04-12 | Outpatient (CLI) | payer OTHER | LOC: ULTRA 16:18 | DX: R60.0 Localized edema (principal) ==

== ENCOUNTER 2018-07-15 07:56 | Emergency (ER) | payer OTHER ==
[~2018-07-15] VITALS: Ht 165.1 cm; Wt 68.0 kg
[2018-07-15 08:18] LABS: ABSOLUTE NEUTROPHILS 7.9 thou/uL (1.4-8.2); BASOPHILS 0.3 % (0.0-2.0); EOSINOPHILS 0.8 % (0.0-3.0); HEMATOCRIT 43.5 % (37.0-47.0); HEMOGLOBIN 14.8 gm/dL (12.0-15.0); LYMPHOCYTES 17.7 % (24.0-44.0); MCH 35.1 pg (26.0-34.0); MCHC 34.2 g/dL (28.0-37.0); MCV 102.8 fL (80.0-100.0); MONOCYTES 5.4 % (1.0-8.0); PLATELET COUNT 278 thou/uL (150-400); POLYS 75.8 % (36.0-66.0); RBC 4.23 mil/uL (4.20-5.00); WBC 10.4 thou/uL (4.0-11.0)
[2018-07-15 08:25] LABS: ANION GAP 6 mmol/L (7-16); BUN 29 mg/dL (7-18); CALCIUM 10.1 mg/dL (8.5-10.1); CHLORIDE 103 mmol/L (98-107); CO2 30 mmol/L (21-32); CREATININE 1.2 mg/dL (0.6-1.0); GLUCOSE 156 mg/dL (74-106); POTASSIUM 3.9 mmol/L (3.5-5.1); SODIUM 139 mmol/L (136-145)
--- NOTE | 2018-07-15 08:30 | EKG ---
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 : 1930 Requested By: Rashel Galarza Order Number: [id number] MD: Colin Zhou Measurements Intervals [place] Rate: 95 P: [place]: QRS: -59 QRSD: 156 T: 72 QT: 448 QTc: 564 Interpretive Statements Atrial fibrillation Ventricular premature complex RBBB and LAFB Compared to ECG 10/05/2017 16:37:58 Ventricular premature complex(es) now present Right bundle-branch block now present Left ventricular hypertrophy now present T-wave abnormality no longer present Prolonged QT interval no longer present Electronically Signed On 07-15-2018 8:30:40 CDT by Colin Zhou [email or web address] ��������������������������������������������� <ELECTRONICALLY SIGNED> ���������������������������������������� By: Colin Zhou MD, [facility] ��������������������������������������������� 07/15/18 0830 0 0 Colin Zhou MD, [facility] /EPI
[2018-07-15 08:36] LABS: ALBUMIN 3.8 g/dL (3.4-5.0); MAGNESIUM 2.4 mg/dL (1.8-2.4); SGOT 25 U/L (15-37); SGPT 29 U/L (30-65); TOTAL BILIRUBIN 0.5 mg/dL (<0.1-1.0); TOTAL PROTEIN 7.3 g/dL (6.4-8.2); TROPONIN-I <0.06 ng/mL (<0.06)
[2018-07-15 09:15] LABS: URINE BILIRUBIN NEGATIVE (Negative); URINE BLOOD NEGATIVE (Negative); URINE CLARITY CLEAR; URINE COLOR YELLOW; URINE GLUCOSE-RANDOM* NEGATIVE (Negative); URINE KETONES NEGATIVE (Negative); URINE LEUKOCYTES-REFLEX TRACE (Negative); URINE NITRITE-REFLEX NEGATIVE (Negative); URINE PROTEIN (DIPSTICK) TRACE (Negative); URINE UROBILINOGEN 0.2 E.U./dl (0.2-1.0)
[2018-07-15 11:43] VITALS: BP 136/60
== END 2018-07-15 10:55 ==
LOC: ER 07:56
PROVIDERS: Emergency Medicine
DX: D53.9 Nutritional anemia, unspecified (principal); R53.1 Weakness; R11.2 Nausea with vomiting, unspecified; R79.89 Other specified abnormal findings of blood chemistry; M41.9 Scoliosis, unspecified; F41.9 Anxiety disorder, unspecified; K21.9 Gastro-esophageal reflux disease without esophagitis; I11.0 Hypertensive heart disease with heart failure; I50.9 Heart failure, unspecified; I48.91 Unspecified atrial fibrillation; Z88.8 Allergy status to other drugs, medicaments and biological substances; Z90.89 Acquired absence of other organs

== ENCOUNTER → 2019-04-26 | Outpatient (CLI) | payer OTHER | LOC: SJCVCIMAG 10:00 | DX: I08.8 Other rheumatic multiple valve diseases (principal); I48.21 Permanent atrial fibrillation; I42.8 Other cardiomyopathies; I45.10 Unspecified right bundle-branch block; I11.0 Hypertensive heart disease with heart failure; I50.9 Heart failure, unspecified; K21.9 Gastro-esophageal reflux disease without esophagitis; Z79.899 Other long term (current) drug therapy ==

== ENCOUNTER → 2019-11-01 | Outpatient (CLI) | payer OTHER | LOC: SJCVC 14:30 | PROVIDERS: ATTEND Internal Medicine Cardiovascular Disease | DX: R94.31 Abnormal electrocardiogram [ECG] [EKG] (principal); I45.2 Bifascicular block; I48.21 Permanent atrial fibrillation; I11.0 Hypertensive heart disease with heart failure; I50.9 Heart failure, unspecified; Z79.899 Other long term (current) drug therapy ==

== ENCOUNTER → 2019-11-08 | Outpatient (CLI) | payer OTHER | LOC: SJCVC 16:37 | PROVIDERS: ATTEND Internal Medicine Cardiovascular Disease | DX: I48.21 Permanent atrial fibrillation (principal); I45.2 Bifascicular block; K21.9 Gastro-esophageal reflux disease without esophagitis; I11.0 Hypertensive heart disease with heart failure; I50.9 Heart failure, unspecified; R94.31 Abnormal electrocardiogram [ECG] [EKG]; Z88.8 Allergy status to other drugs, medicaments and biological substances; Z79.899 Other long term (current) drug therapy; Z90.09 Acquired absence of other part of head and neck ==

== ENCOUNTER 2020-02-07 08:39 | Inpatient (IN) | payer OTHER ==
[~2020-02-07] VITALS: Ht 165.1 cm; Wt 68.0 kg
[2020-02-07 08:43] VITALS: BP 168/91
[2020-02-07 09:59] LABS: ABSOLUTE NEUTROPHILS 5.2 thou/uL (1.4-8.2); BASOPHILS 0.3 % (0.0-2.0); EOSINOPHILS 0.9 % (0.0-3.0); HEMATOCRIT 47.6 % (37.0-47.0); HEMOGLOBIN 15.8 gm/dL (12.0-15.0); LYMPHOCYTES 20.3 % (24.0-44.0); MCH 34.8 pg (26.0-34.0); MCHC 33.1 g/dL (28.0-37.0); MCV 105.1 fL (80.0-100.0); MONOCYTES 5.2 % (1.0-8.0); PLATELET COUNT 297 thou/uL (150-400); POLYS 73.3 % (36.0-66.0); RBC 4.53 mil/uL (4.20-5.00); RDW 12.8 % (10.5-14.5); WBC 7.1 thou/uL (4.0-11.0)
[2020-02-07 10:23] LABS: ANION GAP 13 mmol/L (7-16); BUN 25 mg/dL (7-18); CALCIUM 9.9 mg/dL (8.5-10.1); CHLORIDE 103 mmol/L (98-107); CO2 27 mmol/L (21-32); CREATININE 0.9 mg/dL (0.6-1.0); GLUCOSE 113 mg/dL (74-106); POTASSIUM 4.2 mmol/L (3.5-5.1); SODIUM 143 mmol/L (136-145)
[2020-02-07 11:05] LABS: ALBUMIN 3.7 g/dL (3.4-5.0); SGOT 24 U/L (15-37); SGPT 22 U/L (30-65); TOTAL BILIRUBIN 0.6 mg/dL (0.2-1.0); TOTAL PROTEIN 7.6 g/dL (6.4-8.2); TROPONIN-I <0.06 ng/mL (<0.06)
--- NOTE | 2020-02-07 15:39 | EKG ---
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: SEBLE : 1930 Requested By: Ulises Eagle Order Number: [id number] MD: Addi Dominguez Measurements Intervals [place] Rate: 79 P: [place]: QRS: -60 QRSD: 148 T: 73 QT: 395 QTc: 453 Interpretive Statements Atrial fibrillation RBBB and LAFB Compared to ECG 07/15/2018 08:21:08 Ventricular premature complex(es) no longer present Electronically Signed On 02-07-2020 15:39:11 INDUCTOR TESTER by Addi Dominguez [email or web address] <ELECTRONICALLY SIGNED> By: Addi Dominguez MD, [facility] 02/07/20 1539 1026 25 Addi Dominguez MD, FACC /EPI
[2020-02-07 20:06] VITALS: BP 170/81
[2020-02-07 23:31] VITALS: BP 129/97
[2020-02-07 23:39] VITALS: BP 144/75
[2020-02-08 00:16] VITALS: BP 151/85
[2020-02-08 06:33] LABS: HEMATOCRIT 45.3 % (37.0-47.0); HEMOGLOBIN 15.1 gm/dL (12.0-15.0); MCH 34.7 pg (26.0-34.0); MCHC 33.3 g/dL (28.0-37.0); MCV 104.2 fL (80.0-100.0); RBC 4.34 mil/uL (4.20-5.00); RDW 13.1 % (10.5-14.5); WBC 7.4 thou/uL (4.0-11.0)
[2020-02-08 06:45] LABS: CALCIUM 9.3 mg/dL (8.5-10.1); CREATININE 0.9 mg/dL (0.6-1.0); POTASSIUM 3.7 mmol/L (3.5-5.1)
--- NOTE | 2020-02-08 06:48 | NUR ---
NEW ADMIT FOR SOA AND CHF. PATIENT INCOONTIENT THIS SHIFT. PERICARE AND BARRIER CREAM APPLIED NEEDED. PATIENT IS ON 1L OXYGEN NO SOA OR DISTRESS NOTED THIS SHIFT. FALL PRECAUTION IN PLACE. PATIENT IN BED ASLEEP AT THIS TIME BREATHING REGULAR AND UNLABOURED.
[2020-02-08 07:20] VITALS: BP 132/83
--- NOTE | 2020-02-08 11:44 | NUR ---
ASSUMED PT CAR THIS AM. PT A&OX4. VSS WHEN INITIALLY TAKEN THIS AM, BUT WHEN PT SAT UP AND TRANSFERRED TO [facility] HR INCREASED TO 140-160 WHILE SITTING STILL. MADE AWARE AND NEW ORDERS IN PLACE FOR MEDS. PT TRANSFERRED BACK TO BED, EKG COMPLETED. HR REMAINS ELEVATED 100-120 WHEN LYING STILL, WHEN SITTING UP IT ELEVATES TO THE 140-[address] AWARE. PT IS HARD OF HEARING. IV IN HAND DISLODGED BY PT, NEW IV STARTED IN THE RIGHT FOREARM. PT COMPLAINING OF NO PAIN. MEDS TAKEN THIS AM WITHOUT COMPLAINT. PT IN CHAIR CURRENTLY. RT TOOK PT OFF OF OXYGEN, REPORTING THAT O2 SATURATION IS FINE WITHOUT NEEDING OXYGEN.
--- NOTE | 2020-02-08 12:08 | EKG ---
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: SOWMYA : 1930 Requested By: Rubén Virgen Order Number: [id number] MD: Addi Dominguez Measurements Intervals [place] Rate: 117 P: [place]: QRS: -65 QRSD: 140 T: 86 QT: 371 QTc: 518 Interpretive Statements Atrial fibrillation RBBB and LAFB Abnormal T, consider ischemia, lateral leads Compared to ECG 02/07/2020 10:26:39 T-wave abnormality now present Possible ischemia now present Electronically Signed On 02-08-2020 12:08:42 CLARITY DEVELOPER by Addi Dominguez [email or web address] <ELECTRONICALLY SIGNED> By: Addi Dominguez MD, [facility] 02/08/20 1208 08 08 Addi Dominguez MD, [facility] /EPI
--- NOTE | 2020-02-08 14:01 | 2DMMODE ---
[facility] [place] [address] 2 D/M-MODE ECHOCARDIOGRAM Name: LEXI ODONNELL Room #: 453-P ADM IN M.R.#: [id number] Admission: 02/07/20 Attend Phys: Rubén Virgen MD Discharge: Date of : 31 Report #: [id number] THIS REPORT FOR: cc: Lopez Marcus James A. DO Lammoglia, Francisco J. MD ~ ADDENDUM APPROVED REPORT Study performed: 02/08/2020 09:35:53 EXAM: Comprehensive 2D, Doppler, and color-flow Echocardiogram Patient Location: Bedside Room #: 453 Status: routine BSA: 1.75 HR: 82 bpm BP: 132/83 mmHg Rhythm: Atrial Fibrillation Other Information Study Quality: Adequate/off axis apicals. Not all measurements taken. Technically limited study due to patient flat on back. Indications Dyspnea. Hx: Cardiomyopathy (2018), SVT, CHF, Afib. 2D Dimensions IVSd: 10.38 (7-11mm) LVOT Diam: 19.67 (18-24mm) LVDd: 40.05 mm PWd: 10.64 (7-11mm) Ascending Ao: 32.64 (22-36mm) LVDs: 28.56 (25-40mm) Aortic Root: 32.15 mm Aortic Valve AoV Peak Jose R.: 1.00 m/s AO Peak Gr.: 4.02 mmHg LVOT Max P.64 mmHg LVOT Max V: 0.64 m/s JEWELS Vmax: 1.94 cm2 Mitral Valve MV Decel. Time: 192.94 ms [facility] [place] [address] 2 D/M-MODE ECHOCARDIOGRAM Name: LEXI ODONNELL Room #: 453-P ADM IN .R.#: [id number] Admission: 02/07/20 Attend Phys: Rubén Virgen MD Discharge: Date of : 31 Report #: [id number] MV E Max Jose R.: 0.84 m/s Pulmonary Valve PV Peak Jose R.: 0.79 m/s PV Peak Gr.: 2.53 mmHg Tricuspid Valve TR Peak Jose R.: 2.37 m/s RAP Estimate: 5.00 mmHg TR Peak Gr.: 22.38 mmHg PA Pressure: 27.00 mmHg Left Ventricle The left ventricle is normal size. There is normal LV segmental wall motion. There is normal left ventricular wall thickness. Left ventricular systolic function is normal. LVEF is 55-%. This study is not technically sufficient to allow evaluation of the LV diastolic function due to atrial fibrillation. Right Ventricle The right ventricle is normal size. The right ventricular systolic function is normal. Atria Biatrial enlargement. Aortic Valve The aortic valve is normal in structure; mildly calcified. No aortic regurgitation is present. There is no aortic valvular stenosis. Mitral Valve The mitral valve is normal in structure. Trace mitral regurgitation. Tricuspid Valve The tricuspid valve is normal in structure. Trace tricuspid regurgitation. Estimated PAP is 27mmHg. Pulmonic Valve Pulmonic valve is not well visualized. Trace pulmonic regurgitation. Great Vessels The aortic root is normal in size. The ascending aorta is normal in size. IVC is normal in size and collapses >50% with inspiration. [facility] [place] [address] 2 D/M-MODE ECHOCARDIOGRAM Name: LEXI ODONNELL Room #: 453-P [facility] IN M.R.#: [id number] Admission: 02/07/20 Attend Phys: Rubén Virgen MD Discharge: Date of : 31 Report #: [id number] Pericardium There is no pericardial effusion. <Conclusion> Study performed in atrial fibrillation The left ventricle is normal size. LVEF is 55-%. Biatrial enlargement. The aortic valve is normal in structure; mildly calcified. No aortic regurgitation is present. There is no aortic valvular stenosis. The mitral valve is normal in structure. Trace mitral regurgitation. The tricuspid valve is normal in structure. Trace tricuspid regurgitation. Estimated PAP is 27mmHg. Pulmonic valve is not well visualized. There is no pericardial effusion. <ELECTRONICALLY SIGNED> By: Jeramy Silva MD 02/08/20 1401 140 00 Jeramy Silva MD /INF
[2020-02-08 14:46] VITALS: BP 111/47
--- NOTE | 2020-02-08 16:00 | NUR ---
PT ADMITTED RELATED TO PUI, ACUTE RESPITATORY INSUFFICIENCY, COVID VS CHF. CM REVIEWED CHART AND SPOKE WITH CARE TEAM. CM MET WITH PT AT BEDSIDE THIS DAY PT IS A&O X4 BUT VERY SUQUAMISH. CM HAD TO WRITE ALL ASSESSMENT QUESTIONS. SHE CONFIRMED THAT SHE RESIDES AT [facility]. 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 PT INDICATED NO HH OR SKILLED HISTORY. PT INDICATED SHE HOPED TO BE ABLE TO RETURN HOME ONCE MEDICALLY STABLE. PT AND OT SEEING PT. CM CALLED PT'S DTR WHO WAS UP ON HER WAY TO UNIT. CM TO FOLLOW INDICATED WITH DC PLANNING.
[2020-02-08 16:49] VITALS: BP 129/67
[2020-02-08 19:59] VITALS: BP 142/75
--- NOTE | 2020-02-09 02:27 | NUR ---
PT CARE ASSUMED WITH PT IN BED WATCHING TV.PT APPEARED TO BE IN NO DISTRESS.PT IS NIKOLAI AND HAS BHA.PT IS UP WITH X1 ASSIST.WILL CONTINUE TO MONITOR
[2020-02-09 10:17] VITALS: BP 100/63
[2020-02-09 13:25] VITALS: BP 100/63
--- NOTE | 2020-02-09 13:46 | NUR ---
ASSUMED CARE OF PATIENT AT SHIFT CHANGE. ASSESSMENT CHARTED. MEDICATIONS ADMINISTERED PER EMAR. VSS. PATIENT IS A&OX4 AND MAKES NEEDS KNOWN. ON ROOM AIR AND O2 SATS ARE GOOD. FUROSEMIDE ADMINISTERED FOR FLUID OVERLOAD. ON A REGULAR DIET AND TOLERATING WELL. TREATMENT TEAM DECIDED PATIENT IS MEDICALLY STABLE AND ABLE TO D/C HOME W [facility]. FALL PRECAUTIONS REMAIN IN PLACE. WILL CONTINUE TO MONITOR AND FOLLOW PLAN OF CARE
--- NOTE | 2020-02-09 13:49 | NUR ---
CARE TEAM INDICATED THAT PT IS MEDICALLY STABLE TO DC HOME THIS DAY. PT IS TO RETURN TO [facility]. PT AND DTR ARE AWARE AND AGREEABLE. THEY WERE RECEPTIVE TO REFERRAL BEING SENT TO [facility]. REFERRAL SENT. [facility] CAN ACCEPT FOR SERVICES. ORDERS FAXED. PT'S DTR TO [facility] TRANSPORT HOME THIS AFTERNOON AROUND 1430. NO OTHER CM INTERVENTION INDICATED. CASE CLOSED.
== END 2020-02-09 17:53 | disposition home health service (06) | DRG 291 ==
LOC: ER 08:39 → EROBS 11:36 → 4W 11:36
PROVIDERS: Emergency Medicine; ADMIT Hospitalist; ATTEND Hospitalist
DX: I11.0 Hypertensive heart disease with heart failure (principal); J96.01 Acute respiratory failure with hypoxia; I48.20 Chronic atrial fibrillation, unspecified; I50.33 Acute on chronic diastolic (congestive) heart failure; D53.9 Nutritional anemia, unspecified; F41.9 Anxiety disorder, unspecified; E89.0 Postprocedural hypothyroidism; E78.5 Hyperlipidemia, unspecified; F32.9 Major depressive disorder, single episode, unspecified; Z20.828 Contact with and (suspected) exposure to other viral communicable diseases; Z79.1 Long term (current) use of non-steroidal anti-inflammatories (NSAID); Z88.8 Allergy status to other drugs, medicaments and biological substances; Z79.899 Other long term (current) drug therapy
CPT/HCPCS: 10045

== ENCOUNTER → 2020-05-07 | Outpatient (CLI) | payer OTHER | LOC: SJCVC 13:50 | PROVIDERS: ATTEND Internal Medicine Cardiovascular Disease | DX: I45.2 Bifascicular block (principal); I44.0 Atrioventricular block, first degree; I48.91 Unspecified atrial fibrillation; R94.31 Abnormal electrocardiogram [ECG] [EKG]; I49.3 Ventricular premature depolarization; I50.32 Chronic diastolic (congestive) heart failure; I48.21 Permanent atrial fibrillation; Z88.8 Allergy status to other drugs, medicaments and biological substances; Z79.899 Other long term (current) drug therapy ==

== ENCOUNTER → 2020-09-09 | Outpatient (CLI) | payer OTHER | LOC: SJCVC 13:38 | PROVIDERS: ATTEND Internal Medicine | DX: R94.31 Abnormal electrocardiogram [ECG] [EKG] (principal); I45.2 Bifascicular block; I48.21 Permanent atrial fibrillation; I11.0 Hypertensive heart disease with heart failure; I50.32 Chronic diastolic (congestive) heart failure; I49.5 Sick sinus syndrome; K21.9 Gastro-esophageal reflux disease without esophagitis; E78.5 Hyperlipidemia, unspecified; Z79.899 Other long term (current) drug therapy; Z88.1 Allergy status to other antibiotic agents ==

== ENCOUNTER 2020-09-21 12:30 | Emergency (ER) | payer OTHER ==
[~2020-09-21] VITALS: Ht 165.1 cm; Wt 70.8 kg
--- NOTE | ~2020-09-21 | EMS ---
[facility] [address] [place] [address] EMS Patient Care Report Name: LEXI ODONNELL Room #: DEP Jessi#: [id number] Admission: 09/21/20 Attend Phys: Discharge: 09/21/20 Date of : 31 Report #: [id number] THIS REPORT FOR: //name// Report Transmitted: 09/23/2020 13:23 EMS Care Summary [place], [place]/[facility] Incident 21-202228 @ 09/21/2020 11:41 Incident Location [address] [facility] Patient LEXI STEPHENSON Female, 89 Years 1930 Patient Address [address] [place] [address] Patient History Congestive Heart Failure (CHF),Hypertension (HTN), Patient Allergies No known allergies, Patient Medications Atenolol, Ambien, Celebrex, Aspirin, Enalapril, Chief Complaint cxp Disposition Transported No Lights/[place] Reason Sick Person Transported To [facility] Narrative had long response time , p36 on scene with nrbm on pt. pt hard of hearing and reads lips and has hearing aid . difficult to info from. she started having cx heaviness some time last night , no meds taken for it . this morning feeling [facility] [address] [place] [address] EMS Patient Care Report Name: LEXI ODONNELL Room #: DEP NicholeGadiel#: [id number] Admission: 09/21/20 Attend Phys: Discharge: 09/21/20 Date of : 31 Report #: [id number] nauseated with soa. pt given iv and zofran for nausea and asa and ntg for cxp . by arrival to er he discomfort was gone along with her nausea. Initial Vitals @12:24P: 100,R: 16,BP: 142/78,Pain: 1/10,GCS: 15,Glucose: 128,SpO2: 98,Revised Trauma: 12, @11:57P: 73,R: 16,BP: 200/100,Pain: 1/10,GCS: 15,Glucose: 128,SpO2: 97,Revised Trauma: 12, Assessments @12:00MENTAL:No Abnormalities,SKIN:No Abnormalities,HEENT:Head/Face: No Abnormalities,Eyes: No Abnormalities,Neck/Airway: No Abnormalities,LUNG SOUNDS:ABDOMEN:PELVIS//GI:No Abnormalities,EXTREMITIES:Right Leg: Edema,Left Arm: No Abnormalities,Right Arm: No Abnormalities,Left Leg: No Abnormalities,PULSE:NEURO:No Abnormalities, Impression Chest Pain / Discomfort Procedures @12:08ALS AssessmentResponse: UnchangedSucceeded@12:15Zofran - 4 Milligrams (mg) - Intravenous (IV)Response: Improved@12:15Nitro Paste - 1 Inches (in) - TopicalResponse: Improved@12:15Aspirin - 324 Milligrams (mg) - OralResponse: Unchanged@12:08Normal Saline (.9% NaCl) 10cc (22 ga) Site: Forearm-LeftResponse: UnchangedSucceeded Timeline 11:38,Call Received 11:38,Dispatch Notified 11:41,Dispatched 11:41,En Route 11:55,On Scene 11:56,At Patient 11:57,BP: 200/100 M,PULSE: 73,RR: 16 R,SPO2: 97 Ox,ETCO2: ,B,PAIN: 1,GCS: 15, 12:06,Depart Scene 12:08,ALS Assessment,Response: UnchangedSucceeded, 12:08,Normal Saline (.9% NaCl) 10cc 22 ga Site: Forearm-Left,Response: UnchangedSucceeded, 12:15,Aspirin - 324 Milligrams (mg) - Oral,Response: Unchanged 12:15,Nitro Paste - 1 Inches (in) - Topical,Response: Improved 12:15,Zofran - 4 Milligrams (mg) - Intravenous (IV),Response: Improved 12:24,BP: 142/78 M,PULSE: 100,RR: 16 R,SPO2: 98 Ox,ETCO2: ,B,PAIN: 1,GCS: 15, 12:25,At Destination 12:44,Call Closed [facility] [address] [place] [address] EMS Patient Care Report Name: BLASLEXI Donovan Room #: [facility] Jessi#: [id number] Admission: 09/21/20 Attend Phys: Discharge: 09/21/20 Date of : 31 Report #: [id number] Disclaimer v1.1 Copyright 202 [employer] This EMS Care Summary contains data elements from the applicable legal record (which may be displayed differently). It is designed to provide pertinent information for the following purposes: continuity of care, clinical quality, and state data reporting. The complete legal record is available to ED staff and administrators of the receiving hospital in [employer] Patient Tracker. All data is provided "as is."
[2020-09-21 13:12] LABS: ABSOLUTE NEUTROPHILS 3.9 thou/uL (1.4-8.2); BASOPHILS 0.3 % (0.0-2.0); HEMATOCRIT 40.7 % (37.0-47.0); HEMOGLOBIN 13.8 gm/dL (12.0-15.0); LYMPHOCYTES 23.6 % (24.0-44.0); MCH 35.3 pg (26.0-34.0); MCV 103.7 fL (80.0-100.0); MONOCYTES 5.8 % (1.0-8.0); PLATELET COUNT 286 thou/uL (150-400); POLYS 69.3 % (36.0-66.0); RBC 3.92 mil/uL (4.20-5.00); RDW 13.8 % (10.5-14.5); WBC 5.7 thou/uL (4.0-11.0)
[2020-09-21 13:16] LABS: ANION GAP 3 mmol/L (7-16); BUN 19 mg/dL (7-18); CALCIUM 9.1 mg/dL (8.5-10.1); CHLORIDE 108 mmol/L (98-107); CO2 34 mmol/L (21-32); CREATININE 1.2 mg/dL (0.6-1.0); GLUCOSE 152 mg/dL (74-106); POTASSIUM 4.3 mmol/L (3.5-5.1); SODIUM 145 mmol/L (136-145)
[2020-09-21 13:26] LABS: ALBUMIN 3.1 g/dL (3.4-5.0); SGOT 21 U/L (15-37); SGPT 16 U/L (30-65); TOTAL BILIRUBIN 0.3 mg/dL (0.2-1.0); TOTAL PROTEIN 6.7 g/dL (6.4-8.2); TROPONIN-I <0.06 ng/mL (<0.06)
[2020-09-21 19:49] VITALS: BP 136/87
--- NOTE | 2020-09-22 09:22 | EKG ---
[address] [address] ELECTROCARDIOGRAM REPORT Name: LEXI ODONNELL Zion Room #: [facility]#: [id number] Admission: 09/21/20 Attend Phys: Discharge: 09/21/20 Date of : 31 Report #: [id number] [facility] [place] [place] ED Test Date: 2020-09-21 Test Time: 12:37:42 Pat Name: LEXI ODONNELL Department: Room: Gender: F Health Information Technologist: AURELIA : 1930 Requested By: Mercedes Carr Order Number: [id number] MD: Addi Dominguez Measurements Intervals [place] Rate: 80 P: [place]: QRS: -69 QRSD: 149 T: 70 QT: 403 QTc: 465 Interpretive Statements Atrial fibrillation RBBB and LAFB Compared to ECG 02/08/2020 08:00:36 T-wave abnormality no longer present Possible ischemia no longer present Electronically Signed On 09-22-2020 9:22:12 CDT by Addi Dominguez [email or web address] <ELECTRONICALLY SIGNED> By: Addi Dominguez MD, [facility] 09/22/20 0922 1237 36 Addi Dominguez MD, [facility] /EPI
== END 2020-09-21 19:50 | disposition home or self-care (01) ==
LOC: ER 12:30
PROVIDERS: Nurse Practitioner Family
DX: R91.8 Other nonspecific abnormal finding of lung field (principal); M41.9 Scoliosis, unspecified; F41.9 Anxiety disorder, unspecified; K21.9 Gastro-esophageal reflux disease without esophagitis; I11.0 Hypertensive heart disease with heart failure; I50.9 Heart failure, unspecified; Z90.89 Acquired absence of other organs; Z79.899 Other long term (current) drug therapy; Z88.1 Allergy status to other antibiotic agents; Z20.822 Contact with and (suspected) exposure to COVID-19

== ENCOUNTER → 2020-11-07 | Outpatient (CLI) | payer OTHER | LOC: SJCVC 15:10 | PROVIDERS: ATTEND Internal Medicine Cardiovascular Disease | DX: R94.31 Abnormal electrocardiogram [ECG] [EKG] (principal); I45.10 Unspecified right bundle-branch block; I48.21 Permanent atrial fibrillation; R00.1 Bradycardia, unspecified; I11.0 Hypertensive heart disease with heart failure; I50.9 Heart failure, unspecified; K21.9 Gastro-esophageal reflux disease without esophagitis; F41.9 Anxiety disorder, unspecified; Z88.8 Allergy status to other drugs, medicaments and biological substances; Z79.899 Other long term (current) drug therapy ==